=== PATIENT | female | born 1945 | race Caucasian/White ===

== ENCOUNTER 2023-08-05 23:56 | Emergency (ER) | payer MEDICAID, OTHER ==
[~2023-08-05] VITALS: Ht 165.1 cm; Wt 67.0 kg
[2023-08-06 00:04] VITALS: BP 143/63; TEMP 98.7; O2SAT 99
[2023-08-06 00:25] VITALS: PULSE 106; RESP 16
== END 2023-08-06 02:54 | disposition left against medical advice (07) ==
LOC: ER 23:56
DX: Z53.21 Procedure and treatment not carried out due to patient leaving prior to being seen by health care provider (principal)
CPT/HCPCS: 99281